=== PATIENT | female | born 1955 | race Caucasian/White ===

== ENCOUNTER → 2019-05-23 | Outpatient (CLI) | payer MEDICARE, BC ==
--- NOTE | 2019-05-26 14:04 | MM ---
Reason for exam: screening (asymptomatic). Last mammogram was performed 1 year and 2 months ago. History: Patient is postmenopausal. Family history of premenopausal breast cancer in sister at age 40. Physical Findings: A clinical breast exam by your physician is recommended on an annual basis and results should be correlated with mammographic findings. MG 3D Screening Mammo W/Cad Bilateral CC and MLO view(s) were taken. Prior study comparison: April 03, 2018, bilateral MG screening mammo w CAD. October 21, 2014, bilateral MG screening mammo w CAD. The breast tissue is heterogeneously dense. This may lower the sensitivity of mammography. There is no discrete abnormality. ASSESSMENT: Negative, BI-RAD 1 RECOMMENDATION: Routine screening mammogram of both breasts in 1 year.
== END | disposition home or self-care (01) ==
LOC: RADMAMWWP 13:29
PROVIDERS: ATTEND Obstetrics & Gynecology
DX: Z12.31 Encounter for screening mammogram for malignant neoplasm of breast (principal)
CPT/HCPCS: 77063; 77067

== ENCOUNTER → 2020-06-16 | Outpatient (CLI) | payer MEDICARE, BC ==
--- NOTE | 2020-06-16 18:54 | BD ---
EXAMINATION TYPE: Axial Bone Density DATE OF EXAM: 06/16/2020 COMPARISON: 04.03.2018 CLINICAL HISTORY: 65 YR OLD FEMALE.....ICD-10 CODE: M89.9 DISORDER OF BONE Height: Weight: FRAX RISK QUESTIONS: Glucocorticoids (More than 3mos): NOT ROUTINE (Ex: prednisone, prednisolone, methylprednisolone, dexamethasone, and hydrocortisone). RISK FACTORS HISTORY OF: Family History of Osteoporosis: YES, MOTHER WITHOUT HIP FX Active: YES Postmenopausal woman: YES, AT ABOUT AGE 52 Hyperparathyroidism: NO Adrenal Insufficiency: NO MEDICATIONS: Prednisone YES, IN THE PAST Additional Medications: STATIN FOR CHOLESTEROL, VIT D AND CALCIUM Additional History: CHOLESTEROL EXAM MEASUREMENTS: Bone mineral densitometry was performed using the Alinto System. Bone mineral density as measured about the Lumbar spine is: ----- L1-L4(G/cm2): 0.896 T Score Values are as follows: ----- L1: -1.8 ----- L2: -2.4 ----- L3: -3.1 ----- L4: -2.3 ----- L1-L4: -2.4 Bone mineral density has: REMAINED THE SAME.... 0.0% since study of: 04.03.2018 Bone mineral density about the R hip (g/cm2): 0.773 Bone mineral density about the L hip (g/cm2): 0.814 T Score values are as follows: -----R Neck: -2.0 -----L Neck: -2.3 -----R Total: -1.9 -----L Total: -1.5 Bone mineral density has: Decreased -1.9% since study of: 04.03.2018 FRAX%s: THERE IS A 12.2% CHANCE FOR A MAJOR OSTEOPOROTIC FX AND A 2.4% FOR HIP......PROBABILITY FOR FX IN 10 YRS TIME IMPRESSION: Osteoporosis (T Score less than -2.5). There is increased fracture risk and therapy is usually indicated based on age. Re-Screen 1-2 years. NOTE: T-SCORE=SD OF THE YOUNG ADULT MEAN.
--- NOTE | 2020-06-18 11:00 | MM ---
Reason for exam: screening (asymptomatic). Last mammogram was performed 1 year and 1 month ago. History: Patient is postmenopausal. Family history of premenopausal breast cancer in sister at age 40. Physical Findings: A clinical breast exam by your physician is recommended on an annual basis and results should be correlated with mammographic findings. MG 3D Screening Mammo W/Cad Bilateral CC and MLO view(s) were taken. Prior study comparison: May 23, 2019, bilateral MG 3d screening mammo w/cad. April 03, 2018, bilateral MG screening mammo w CAD. The breast tissue is heterogeneously dense. This may lower the sensitivity of mammography. There is no discrete abnormality. No significant changes when compared with prior studies. ASSESSMENT: Negative, BI-RAD 1 RECOMMENDATION: Routine screening mammogram of both breasts in 1 year.
== END | disposition home or self-care (01) ==
LOC: RADMAMWWP 09:27
PROVIDERS: ATTEND Obstetrics & Gynecology
DX: Z12.31 Encounter for screening mammogram for malignant neoplasm of breast (principal); M81.0 Age-related osteoporosis without current pathological fracture
CPT/HCPCS: 77063; 77067; 77080

== ENCOUNTER → 2021-08-12 | Outpatient (CLI) | payer MEDICARE, BC ==
--- NOTE | 2021-08-15 13:49 | MM ---
Reason for exam: screening (asymptomatic). Last mammogram was performed 1 year and 2 months ago. History: Patient is postmenopausal. Family history of premenopausal breast cancer in sister at age 40. Physical Findings: A clinical breast exam by your physician is recommended on an annual basis and results should be correlated with mammographic findings. MG 3D Screening Mammo W/Cad Bilateral CC and MLO view(s) were taken. Prior study comparison: June 16, 2020, bilateral MG 3d screening mammo w/cad. May 23, 2019, bilateral MG 3d screening mammo w/cad. The breast tissue is heterogeneously dense. This may lower the sensitivity of mammography. Posterior central asymmetry right CC view does not persist on 3D images. No significant changes when compared with prior studies. ASSESSMENT: Benign, BI-RAD 2 RECOMMENDATION: Routine screening mammogram of both breasts in 1 year. Patient should continue monthly self breast exams. A negative report should not preclude additional follow up of suspicious palpable abnormalities.
== END | disposition home or self-care (01) ==
LOC: RADMAMWWP 07:26
PROVIDERS: ATTEND Obstetrics & Gynecology
DX: Z12.31 Encounter for screening mammogram for malignant neoplasm of breast (principal)
CPT/HCPCS: 77063; 77067

== ENCOUNTER → 2022-08-15 | Outpatient (CLI) | payer MEDICARE, BC ==
--- NOTE | 2022-08-15 10:17 | MM ---
Reason for Exam: Clinical finding. Last screening mammogram was performed 12 month(s) ago. Indicated Problems: Lump or thickening of the left side (size 5) for 9 Month(s). Patient History: Menarche at age 12. First Full-Term at age 20. Left ovary removed at age 49. Right ovary removed at age 49. Hysterectomy at age 49. Postmenopausal. Sister had breast cancer, age 40. Sister had breast cancer, age 45. Risk Values: Connie 5 year model risk: 3.3%. NCI Lifetime model risk: 10.4%. Prior Study Comparison: 10/21/2014 Bilateral Screening Mammogram, [facility]. 04/03/2018 Bilateral Screening Mammogram, [facility]. 06/16/2020 Bilateral Screening Mammogram, [facility]. 08/12/2021 Bilateral Screening Mammogram, [facility]. Tissue Density: The breast tissue is heterogeneously dense. This may lower the sensitivity of mammography. Findings: Analyzed By CAD. Nothing to correlate patient's palpable abnormality. There is no suspicious group of microcalcifications or new suspicious mass in either breast. Overall Assessment: Incomplete: need additional imaging evaluation, BI-RAD 0 Management: Diagnostic Breast Ultrasound of the left breast. A clinical breast exam by your physician is recommended on an annual basis and results should be correlated with mammographic findings. [facility] will attempt to contact patient to return for supplemental views and ultrasound if indicated. Electronically signed and approved by: Artie Silva DO
--- NOTE | 2022-08-15 10:49 | USB ---
Reason for Exam: Clinical finding. Patient History: Menarche at age 12. First Full-Term at age 20. Left ovary removed at age 49. Right ovary removed at age 49. Hysterectomy at age 49. Postmenopausal. Sister had breast cancer, age 40. Sister had breast cancer, age 45. Risk Values: Connie 5 year model risk: 3.3%. NCI Lifetime model risk: 10.4%. Technique: Method: Targeted. Prior Study Comparison: 04/03/2018 Bilateral Screening Mammogram, [facility]. 06/16/2020 Bilateral Screening Mammogram, [facility]. 08/12/2021 Bilateral Screening Mammogram, [facility]. Findings: The area of palpable concern of the left breast, the lower outer quadrant of the left breast and the retroareolar of the left breast were scanned. Imaged: Ultrasound imaging of: Area of concern, and retroareolar region. No evidence for organizing fluid collection or mass. Overall Assessment: Negative, BI-RAD 1 Management: Screening Mammogram of both breasts in 1 year. A clinical breast exam by your physician is recommended on an annual basis and results should be correlated with mammographic findings. This exam should not preclude additional follow-up of suspicious palpable abnormalities. Results were given to the patient verbally at the time of exam. Electronically signed and approved by: Artie Silva DO
== END | disposition home or self-care (01) ==
LOC: RADMAMWWP 09:21
PROVIDERS: ATTEND Obstetrics & Gynecology
DX: R92.2 Inconclusive mammogram (principal); Z78.0 Asymptomatic menopausal state; Z80.3 Family history of malignant neoplasm of breast
CPT/HCPCS: 77066; 76642; G0279; 77062

== ENCOUNTER 2024-05-02 13:02 | Emergency (ER) | payer MEDICARE, BC ==
[2024-05-02 13:21] VITALS: BP 137/78; PULSE 73; RESP 20; TEMP 98.1
--- NOTE | 2024-05-02 13:34 | ED ---
Extremity Problem HPI - General Chief complaint: Extremity Problem,Nontraumatic Stated complaint: R leg issue Time Seen by Provider: 05/02/24 13:33 Source: patient, RN notes reviewed, old records reviewed Mode of arrival: wheelchair Limitations: no limitations - History of Present Illness Initial comments: Patient reports 1 month ago she noticed an area of erythema to her right posterior thigh. Patient denies any injuries or traumas. Patient states yesterday she was doing physical activity and noticed pain to that area. Patient was seen by PCP where ultrasound was obtained. Patient sent here from the ER due to abnormal ultrasound. Ultrasound showing a superficial venous thrombus approximately 1.7 even centimeters from the junction of deep vessels. Patient denies a history of blood clots, blood thinner use, chest pain, shortness of breath or palpitations. Patient has no other complaints. - Related Data Previous Rx's Medication Instructions Recorded Apixaban [Eliquis Starter Pack 0 mg PO DIRECTED 30 Days #1 05/02/24 (for VTE)] packet Allergies Allergy/AdvReac Type Severity Reaction Status Date / Time remcaid Allergy Rash/Hives Uncoded 05/02/24 13:22 Review of Systems ROS Statement: Those systems with pertinent positive or pertinent negative responses have been documented in the HPI. ROS Other: All systems not noted in ROS Statement are negative. Past Medical History Additional Past Medical History / Comment(s): chrohns disease trigeminal neuolgia Past Surgical History: Adenoidectomy, Bowel Resection, Hysterectomy, Tonsillectomy Smoking Status: Never smoker General Exam - General Exam Comments Initial Comments: Visual Physical Exam Vital signs reviewed General: Well-appearing, nontoxic, no acute distress. Head: Normocephalic, atraumatic Eyes: PERRLA, EOMI ENT: Airway patent Chest: Nonlabored breathing Skin: No visual rash, normal skin tone Neuro: Alert and oriented 3 Musculoskeletal: No gross abnormalities Limitations: no limitations General appearance: alert, in no apparent distress Respiratory exam: Present: normal lung sounds bilaterally. Absent: respiratory distress, wheezes, rales, rhonchi, stridor Cardiovascular Exam: Present: regular rate, normal rhythm, normal heart sounds. Absent: systolic murmur, diastolic murmur, rubs, gallop, clicks Extremities exam: Present: full ROM, tenderness (Erythema to right medial thigh extending into calf. Area is tender to touch. 2+ right DP and PT pulse.), normal capillary refill Neurological exam: Present: alert, oriented X3, CN II-XII intact Skin exam: Present: warm, dry, intact, normal color. Absent: rash Course Vital Signs 05/02/24 13:18 Temperature 98.1 F Pulse Rate 73 Respiratory 20 Rate Blood Pressure 137/78 O2 Sat by Pulse 97 Oximetry Medical Decision Making - Medical Decision Making I performed the quick note portion of this chart. Electronically signed by Marianne Lynch PA-C Was pt. sent in by a medical professional or institution ([facility], DATA DESIGNER, urgent care, hospital, or skilled nursing...) When possible be specific @ -No Did you speak to anyone other than the patient for history (EMS, parent, family, police, friend...)? What history was obtained from this source @ -No Did you review nursing and triage notes (agree or disagree)? Why? @ -I reviewed and agree with nursing and triage notes Were old charts reviewed (outside hosp., previous admission, EMS record, old EKG, old radiological studies, urgent care reports/EKG's, skilled nursing records)? Report findings @ -Ultrasound venous Doppler right lower extremity completed on 05-02-2024 as an outpatient study showing a superficial venous thrombus approximately 1.7 cm from deep structure junction. Differential Diagnosis (chest pain, altered mental status, abdominal pain women, abdominal pain men, vaginal bleeding, weakness, fever, dyspnea, syncope, headache, dizziness, GI bleed, back pain, seizure, CVA, palpatations, mental health, musculoskeletal)? @ -Differential Musculoskeletal: Muscular strain, contusion, ligament sprain, fracture, arthritis, septic arthritis, bursitis, cellulitis, muscle spasm, nerve compression, DVT, arterial occlusion, herpes zoster, electrolyte abnormality, tumor.... This is not meant to be in all inclusive list EKG interpreted by me (3pts min.). @ -None done X-rays interpreted by me (1pt min.). @ -None done CT interpreted by me (1pt min.). @ -None done U/S interpreted by me (1pt. min.). @ -None done What testing was considered but not performed or refused? (CT, X-rays, U/S, labs)? Why? @ -None What meds were considered but not given or refused? Why? @ -None Did you discuss the management of the patient with other professionals (professionals i.e. Dr., PA, DATA DESIGNER, lab, RT, psych nurse, social sciences professor, military cook, teacher, anti air warfare operations officer, case advocate)? Give summary @ -No Was smoking cessation discussed for >3mins.? @ -No Was critical care preformed (if so, how long)? @ -No Were there social determinants of health that impacted care today? How? (Homelessness, low income, unemployed, alcoholism, drug addiction, transportation, low edu. Level, literacy, decrease access to med. care, group home, rehab)? @ -No Was there de-escalation of care discussed even if they declined (Discuss DNR or withdrawal of care, Hospice)? DNR status @ -No What co-morbidities impacted this encounter? (DM, HTN, Smoking, COPD, CAD, Cance r, CVA, ARF, Chemo, Hep., AIDS, mental health diagnosis, sleep apnea, morbid obesity)? @ -None Was patient admitted / discharged? Hospital course, mention meds given and route, prescriptions, significant lab abnormalities, going to OR and other pertinent info. @ -Discharge. 69-year-old female presented to ER for evaluation of abnormal ultrasound and right lower extremity discomfort. History and physical exam completed. Vitals within normal limits. Upon examination patient is neurovascularly intact. There is erythema to medial right thigh and extending into the calf. Patient has full range of motion. Ultrasound reviewed from 05-02-2024 as an outpatient stress study which is showing a superficial venous thrombus approximately 1.7 cm from deep structure junction. Patient is stable f or discharge. Given proximity of thrombus patient will be started on Eliquis and instructed to follow-up with PCP closely. Eliquis prescribed, first dose in the ER. Strict return parameters discussed. Patient discharged in stable condition with follow-up to PCP. Patient verbally expressed understanding and agreement with care plan. Case discussed with ED attending, Dr. Felton. Undiagnosed new problem with uncertain prognosis? @ -No Drug Therapy requiring intensive monitoring for toxicity (Heparin, Nitro, Insulin, Cardizem)? @ -No Were any procedures done? @ -No Diagnosis/symptom? @ -Superficial venous thrombus Acute, or Chronic, or Acute on Chronic? @ -Acute Uncomplicated (without systemic symptoms) or Complicated (systemic symptoms)? @ -Uncomplicated Side effects of treatment? @ -No Exacerbation, Progression, or Severe Exacerbation? @ -No Poses a threat to life or bodily function? How? (Chest pain, USA, AR, pneumonia, PE, COPD, DKA, ARF, appy, cholecystitis, CVA, Diverticulitis, Homicidal, Suicidal, threat to staff... and all critical care pts) @ -Low at this time, DVTs can lead to pulmonary embolisms which can be life- threatening. - Radiology Data Radiology results: report reviewed, image reviewed Disposition Clinical Impression: Superficial vein thrombosis Disposition: HOME SELF-CARE Condition: Stable Instructions (If sedation given, give patient instructions): Apixaban (By mouth), Superficial Thrombophlebitis (ED), Deep Vein Thrombosis (ED) Additional Instructions: Take Eliquis as prescribed. 10 mg twice daily for 7 days then 5 mg twice daily after. Follow-up with PCP. Return to the ER for any new or worsening concerns. Prescriptions: Apixaban [Eliquis Starter Pack (for VTE)] 0 mg PO DIRECTED 30 Days #1 packet Is patient prescribed a controlled substance at d/c from ED?: No Referrals: Melida Henley DO [Primary Care Provider] - 1-2 days Time of Disposition: 14:13
[2024-05-02] MEDS: APIXABAN 5 MG TAB PO STA (14:18)
== END 2024-05-02 14:21 | disposition home or self-care (01) ==
LOC: EC 13:02
DX: I82.811 Embolism and thrombosis of superficial veins of right lower extremity (principal); Z88.8 Allergy status to other drugs, medicaments and biological substances
CPT/HCPCS: 99282; 99283

== ENCOUNTER → 2024-05-02 | Outpatient (CLI) | payer MEDICARE, BC ==
--- NOTE | 2024-05-02 13:04 | US ---
EXAMINATION TYPE: US venous doppler duplex LE RT DATE OF EXAM: 05/02/2024 12:48 PM COMPARISON: NONE CLINICAL INDICATION: Female, 69 years old with history of M79.604 PAIN IN RIGHT LEG; Pain and redness right leg. No hx of DVT. Patient does not take blood thinners. TECHNIQUE: The lower extremity deep venous system is examined utilizing real time linear array sonog tammy with graded compression, color doppler sonography, and spectral doppler. SIDE PERFORMED: Right FINDINGS: VESSELS IMAGED: Common Femoral Vein Deep Femoral Vein Greater Saphenous Vein * Femoral Vein Popliteal Vein Small Saphenous Vein * Proximal Calf Veins (* superficial vessels) Right Leg: Internal echoes seen within right GSV at 1.7 cm distance from the junction to the deep system CFV. The vessel does not compress. Echoes seen from proximal GSV down through the thigh and ca lf. Color flow seen in all remaining veins. IMPRESSION: 1. Findings are positive for superficial venous thrombosis greater saphenous vein as described above. 2. No evidence of DVT. [facility], , 05/02/2024 1:02 PM
== END | disposition home or self-care (01) ==
LOC: RADUSWWP 11:25
PROVIDERS: ATTEND Family Medicine
DX: I82.890 Acute embolism and thrombosis of other specified veins (principal)